=== PATIENT | female | born 1965 | race Caucasian/White ===

== ENCOUNTER 2017-07-15 10:01 | Emergency (ER) | payer BC ==
[2017-07-15] MEDS ORDERED: MECLIZINE HCL 25 MG TABLET PO ONE (10:18)
--- NOTE | 2017-07-15 10:22 | ER Document Report ---
ED Medical Screen (RME) - General Chief Complaint: High Blood Pressure Stated Complaint: BLOOD PRESSURE ISSUE Time Seen by Provider: 07/15/17 10:12 Notes: 51-year-old female patient reports waking up this morning feeling a little dizzy lightheaded some blurry vision and headache. Is gotten worse since she got here to work. She checked her blood pressure and found it is quite high. She had been found to have high blood pressure in the past while she was taking control pills. control pills were stopped and she was put on lisinopril/HCTZ. It was very helpful and pressures came down to 120/70. She stopped taking his blood pressure medicine about 5 months ago. She reports she has not checked her pressures in 2-3 months but it was okay then. The patient saw a new primary care provider 2 days ago in the office her blood pressure was 160/90. Lab work was done but no blood pressure medication was started. She reports they had called her to come back in to discuss lab work, but her provider is not in today. Brief exam shows some lateral gaze nystagmus, dizziness increased with rapid head movement. No tenderness to palpate the posterior cervical and temporal muscles. I have greeted and performed a rapid initial assessment of this patient. A comprehensive ED assessment and evaluation of the patient, analysis of test results and completion of the medical decision making process will be conducted by additional ED providers. TRAVEL OUTSIDE OF THE [place] IN LAST 30 DAYS: No - Related Data Allergies/Adverse Reactions: No Known Allergies Allergy (Verified 07/15/17 10:02) Past Medical History - Social History Chew tobacco use (# tins/day): No Frequency of alcohol use: None Drug Abuse: None - Past Medical History Cardiac Medical History: Reports: Hx Hypertension Renal/ Medical History: Denies: Hx Peritoneal Dialysis Physical Exam - Vital signs Vitals: Temp Pulse Resp BP Pulse Ox 98.7 F 83 16 209/108 H 98 07/15/17 10:07/15/17 10:07/15/17 10:07/15/17 10:07 07/15/17 10:07 Course - Vital Signs Vital signs: Temp Pulse Resp BP Pulse Ox 98.7 F 83 16 209/108 H 98 07/15/17 10:07 07/15/17 10:07 07/15/17 10:07 07/15/17 10:07 07/15/17 10:07
[2017-07-15] MEDS ORDERED: CLONIDINE HCL 0.1 MG TABLET PO ONE (10:42)
--- NOTE | 2017-07-15 10:46 | ER Document Report ---
ED General - General Chief Complaint: High Blood Pressure Stated Complaint: BLOOD PRESSURE ISSUE Time Seen by Provider: 07/15/17 10:12 Mode of Arrival: Ambulatory Information source: Patient Notes: 51 yr old female with hx of htn who was on lisinopri hctz presents with complaints of headache and high blood pressure. Pt was on meds but stopped taking them when she moved and had no pcp. pt notes that she saw a new pcp recently, had labs drawn but no meds. Pt attempted to talk to pcp and have meds but was unable to get in touch. TRAVEL OUTSIDE OF THE [place] IN LAST 30 DAYS: No - HPI Onset: Last week Onset/Duration: Persistent, Worse Quality of pain: Achy Severity: Mild Pain Level: 1 Associated symptoms: Headache Exacerbated by: Denies Relieved by: Denies Similar symptoms previously: Yes Recently seen / treated by doctor: Yes - Related Data Allergies/Adverse Reactions: No Known Allergies Allergy (Verified 07/15/17 10:02) Past Medical History - Social History Smoking Status: Never Smoker Cigarette use (# per day): No Chew tobacco use (# tins/day): No Smoking Education Provided: No Frequency of alcohol use: None Drug Abuse: None Family History: Reviewed & Not Pertinent Patient has suicidal ideation: No Patient has homicidal ideation: No - Past Medical History Cardiac Medical History: Reports: Hx Hypertension Renal/ Medical History: Denies: Hx Peritoneal Dialysis Review of Systems - Review of Systems Notes: REVIEW OF SYSTEMS: CONSTITUTIONAL : Denies fever, chills, or sweats. Denies recent illness. EENT: Denies eye, ear, throat, or mouth pain or symptoms. Denies nasal or sinus congestion or discharge. Denies throat, tongue, or mouth swelling or difficulty swallowing. CARDIOVASCULAR: Denies chest pain. Denies palpitations or racing or irregular heart beat. Denies ankle edema. RESPIRATORY: Denies cough, cold, or chest congestion. Denies shortness of breath, difficulty breathing, or wheezing. GASTROINTESTINAL: Denies abdominal pain or distention. Denies nausea, vomiting , or diarrhea. Denies blood in vomitus, stools, or per rectum. Denies black, tarry stools. Denies constipation. GENITOURINARY: Denies difficulty urinating, painful urination, burning, frequency, blood in urine, or discharge. FEMALE GENITOURINARY: Denies vaginal bleeding, heavy or abnormal periods, irregular periods. Denies vaginal discharge or odor. MUSCULOSKELETAL: Denies back or neck pain or stiffness. Denies joint pain or swelling. SKIN: Denies rash, lesions or sores. HEMATOLOGIC : Denies easy bruising or bleeding. LYMPHATIC: Denies swollen, enlarged glands. NEUROLOGICAL: admits ot headache PSYCHIATRIC: Denies anxiety or stress. Denies depression, suicidal ideation, or homicidal ideation. ALL OTHER SYSTEMS REVIEWED AND NEGATIVE. PHYSICAL EXAMINATION: GENERAL: Well-appearing, well-nourished and in no acute distress. HEAD: Atraumatic, normocephalic. EYES: Pupils equal round and reactive to light, extraocular movements intact, conjunctiva are normal. ENT: Nares patent, oropharynx clear without exudates. Moist mucous membranes. NECK: Normal range of motion, supple without lymphadenopathy LUNGS: Breath sounds clear to auscultation bilaterally and equal. No wheezes rales or rhonchi. HEART: Regular rate and rhythm without murmurs ABDOMEN: Soft, nontender, nondistended abdomen. No guarding, no rebound. No masses appreciated. Female : deferred Musculoskeletal: Normal range of motion, no pitting or edema. No cyanosis. NEUROLOGICAL: Cranial nerves grossly intact. Normal speech, normal gait. Normal sensory, motor exams PSYCH: Normal mood, normal affect. SKIN: Warm, Dry, normal turgor, no rashes or lesions noted. Dictation was performed using [employer] voice recognition software Physical Exam - Vital signs Vitals: Temp Pulse Resp BP Pulse Ox 98.7 F 83 16 209/108 H 98 07/15/17 10:07 07/15/17 10:07 07/15/17 10:07 07/15/17 10:07 07/15/17 10:07 Course - Re-evaluation Re-evalutation: 07/15/17 11:09 pt noted ot be quite hypertensive on arrival, she defers on ct head, will treat with clonidine and refill bp meds. I will talk to her pcp office as wel. 07/15/17 11:40 Patient's blood pressure has improved significantly I will discharge her at this time to follow-up with her primary care physician After performing a Medical Screening Examination, I estimate there is LOW risk for ACUTE GLAUCOMA, TEMPORAL ARTERITIS, MENINGITIS, INCRANIAL HEMORRHAGE, or ISCHEMIC STROKE thus I consider the discharge disposition reasonable. I have reevaluated this patient multiple times and no significant life threatening changes are noted. The patient and I have discussed the diagnosis and risks, and we agree with discharging home with close follow-up with the understanding that symptoms and presentations can change. We also discussed returning to the Emergency Department immediately if new or worsening symptoms occur. We have discussed the symptoms which are most concerning (e.g., changing or worsening symptoms, new numbness or weakness, vomiting, fever) that necessitate immediate return. - Vital Signs Vital signs: Temp Pulse Resp BP Pulse Ox 98.7 F 83 13 160/95 H 96 07/15/17 10:07 07/15/17 10:07 07/15/17 11:16 07/15/17 11:16 07/15/17 11:16 Discharge - Discharge Clinical Impression: HTN (hypertension) Qualifiers: Hypertension type: essential hypertension Qualified Code(s): I10 - Essential ( primary) hypertension Condition: Stable Disposition: HOME, SELF-CARE Instructions: High Blood Pressure, Requiring Treatment ([facility]) Prescriptions: Lisinopril/Hydrochlorothiazide [Lisinopril-Hctz 20-25 mg Tab] 1 each PO DAILY # 30 tablet Forms: Return to Work Referrals: BRITTANY GRIFFITHS MD [Primary Care Provider] - 07/18/17
[2017-07-15] MEDS ORDERED: ACETAMINOPHEN 325 MG TABLET PO ONE (11:06)
[2017-07-15 12:47] VITALS: BP 114/85
== END 2017-07-15 12:48 | disposition home or self-care (01) ==
LOC: ER 10:01
DX: I10 Essential (primary) hypertension (principal); R51 Headache
CPT/HCPCS: 99283